=== PATIENT | female | born 1970 | race African-American/Black ===

== ENCOUNTER 2020-05-31 09:56 | Inpatient (IN) | payer OTHER ==
[~2020-05-31] VITALS: Ht 167.6 cm; Wt 88.7 kg
[2020-05-31] VITALS (22 sets, daily range): BP systolic 109–129; BP diastolic 60–88
[2020-05-31] MEDS ORDERED: NICARDIPINE 40MG/200ML PREMIX 200 ML IV STA (10:11)
[2020-05-31] MEDS ORDERED: LABETALOL 5MG/ML SYR 20 MG/4 ML SYRINGE IV ONE (10:15)
[2020-05-31] MEDS ORDERED: LEVETIRACETAM 500MG PREMIX 100 ML IV ONE (10:15)
[2020-05-31 10:16] LABS: BASOPHILS % 0.4 % (0.0-2.0); EOSINOPHILS % 0.3 % (0.0-5.0); HEMATOCRIT. 34.7 % (36.0-48.0); HEMOGLOBIN. 11.6 g/dL (12.0-16.0); LYMPHOCYTES % 22.4 % (20.0-50.0); MEAN CORPUSCULAR HEMOGLOBIN 26.2 pg (28.0-32.0); MEAN CORPUSCULAR VOLUME 78.3 fL (81.0-99.0); MEAN PLATELET VOLUME 7.9 fl (7.4-10.4); MONOCYTES % 4.2 % (2.0-8.0); NEUTROPHILS % 72.7 % (40.0-76.0); PLATELET 217 x1000/uL (130-400); RED BLOOD CELL COUNT 4.42 mill/uL (4.2-5.4)
[2020-05-31 10:22] LABS: CHLORIDE 100 mEq/L (98-107)
[2020-05-31 10:25] LABS: ETHANOL BLOOD < 10 mg/dL; INR 1.1; PROTHROMBIN TIME 11.3 sec (9.6-11.0)
[2020-05-31 10:29] LABS: LDL CHOLESTEROL 138 mg/dL (5-100)
[2020-05-31 10:30] LABS: CREATINE KINASE 415 IU/L (26-192)
[2020-05-31] MEDS ORDERED: DEXAMETHASONE 10 MG/ML VIAL IV ONE (10:30)
[2020-05-31] MEDS ORDERED: MANNITOL 12.5G (25%) VIAL 50ML IV ONE (10:30)
[2020-05-31] MEDS ORDERED: MANNITOL 20% 125 ML IV NR (10:30)
[2020-05-31 10:33] LABS: HCG SCREEN NEGATIVE
[2020-05-31] MEDS ORDERED: POTASSIUM CHLORIDE INJ 40 MEQ in DEXT 5% WATER 250 ML IV ONE (10:45)
[2020-05-31] MEDS ORDERED: MORPHINE SULFATE 2 MG/ML CPJ (NOT FOR IM USE) IV PRN (11:00)
[2020-05-31] MEDS ORDERED: NICARDIPINE 100 MG in SODIUM CHLORIDE 0.9% 60 ML IV PRN (11:00)
[2020-05-31 11:12] LABS: CLARITY URINE CLEAR (CLEAR); COLOR URINE YELLOW (YELLOW); KETONES URINE NEGATIVE (NEGATIVE); LEUKOCYTE ESTERASE URINE NEGATIVE (NEGATIVE); NITRITE URINE NEGATIVE (NEGATIVE); OCCULT BLOOD URINE NEGATIVE (NEGATIVE); PH URINE 7.5 (4.5-8.0); PROTEIN URINE 2+ (NEGATIVE); SPECIFIC GRAVITY URINE 1.017 (1.005-1.030); UROBILINOGEN URINE 0.2 E.U./dL (0.2-1.0)
[2020-05-31] MEDS: DEXT 5%/LACTATED RINGERS 1,000 ML IV SCH (11:25)
[2020-05-31 11:54] LABS: *AMPHETAMINES SCREEN URINE NEGATIVE (NEGATIVE); *BARBITURATES SCREEN URINE NEGATIVE (NEGATIVE); *BENZODIAZEPINES SCREEN URINE NEGATIVE (NEGATIVE)
[2020-05-31 11:55] LABS: OPIATES URINE SCREEN NEGATIVE (NEGATIVE)
[2020-05-31 11:56] LABS: CANNABINOID URINE SCREEN NEGATIVE (NEGATIVE)
[2020-05-31 11:57] LABS: PHENCYCLIDINE URINE SCREEN NEGATIVE (NEGATIVE)
[2020-05-31 12:00] LABS: METHADONE URINE SCREEN NEGATIVE (NEGATIVE)
[2020-05-31 12:01] LABS: *COCAINE SCREEN URINE NEGATIVE (NEGATIVE)
[2020-05-31] MEDS: DEXAMETHASONE 4MG/ML 1ML VIAL IV SCH ×2 (12:25→17:32)
[2020-05-31] MEDS ORDERED: IOHEXOL-300 100 ML BOTTLE ONE (12:51)
[2020-05-31] MEDS ORDERED: ONDANSETRON HCL 4MG/2ML INJ IV PRN (13:00)
[2020-05-31] MEDS ORDERED: DIPHENHYDRAMINE 50MG/ML VIAL IV PRN (13:00)
[2020-05-31] MEDS: NICARDIPINE 100 MG in SODIUM CHLORIDE 0.9% 60 ML IV PRN ×2 (14:36→17:29)
[2020-05-31 16:53] LABS: BG BASE EXCESS 5.9 mmol/L (-2.0-2.0); BG CARBOXYHEMOGLOBIN 0.4 % (0.5-1.5); BG DEOXYHEMOGLOBIN 2.8 % (0.0-5.0); BG FRACTION INSPIRED OXYGEN 21; BG HCO3 ACT 29.4 mmol/L (22.0-26.0); BG METHEMOGLOBIN 0.3 % (0.0-1.5); BG OXYGEN SATURATION 97.2 % (92.0-98.5); BG OXYHEMOGLOBIN 96.5 % (94.0-97.0); BG PCO2 38.7 mmHg (35.0-45.0); BG PH 7.499 (7.350-7.450); BG SAMPLE SITE RIGHT RADIAL; BG VENT MODE ROOM AIR
[2020-05-31] MEDS: POTASSIUM CHLORIDE INJ 40 MEQ in DEXT 5% WATER 250 ML IV NR (18:22)
[2020-05-31] MEDS ORDERED: LEVETIRACETAM 500MG PREMIX 100 ML IV SCH (21:00)
[2020-05-31] MEDS: LEVETIRACETAM 500MG PREMIX 100 ML IV SCH (21:39)
[2020-06-01] VITALS (91 sets, daily range): BP systolic 100–136; BP diastolic 61–89
[2020-06-01] MEDS: DEXAMETHASONE 4MG/ML 1ML VIAL IV SCH ×5 (00:20→23:25)
[2020-06-01] MEDS: NICARDIPINE 100 MG in SODIUM CHLORIDE 0.9% 60 ML IV PRN ×2 (01:39→19:53)
[2020-06-01] MEDS ORDERED: POTASSIUM CHLORIDE INJ 40 MEQ in DEXT 5% WATER 250 ML IV NR (03:00)
[2020-06-01] MEDS: POTASSIUM CHLORIDE INJ 40 MEQ in DEXT 5% WATER 250 ML IV NR ×2 (04:00→04:06)
[2020-06-01] MEDS: DEXT 5%/LACTATED RINGERS 1,000 ML IV SCH ×2 (04:01→20:29)
[2020-06-01 05:42] LABS: BASOPHILS % 0.2 % (0.0-2.0); HEMATOCRIT. 33.8 % (36.0-48.0); HEMOGLOBIN. 11.1 g/dL (12.0-16.0); LYMPHOCYTES % 15.3 % (20.0-50.0); MEAN CORPUSCULAR HEMOGLOBIN 25.5 pg (28.0-32.0); MEAN CORPUSCULAR VOLUME 77.7 fL (81.0-99.0); MONOCYTES % 0.8 % (2.0-8.0); NEUTROPHILS % 83.7 % (40.0-76.0); PLATELET 205 x1000/uL (130-400); RED BLOOD CELL COUNT 4.36 mill/uL (4.2-5.4); RED CELL DISTRIBUTION WIDTH 16.3 % (11.6-14.6)
[2020-06-01 05:47] LABS: CHLORIDE 104 mEq/L (98-107)
[2020-06-01 05:56] LABS: LDL CHOLESTEROL 134 mg/dL (5-100); PHOSPHORUS 1.7 mg/dL (2.5-4.9)
[2020-06-01 05:58] LABS: HDL CHOLESTEROL 64 mg/dL (40-59)
[2020-06-01] MEDS: LEVETIRACETAM 500MG PREMIX 100 ML IV SCH ×2 (09:17→20:07)
[2020-06-01] MEDS ORDERED: POTASSIUM CHLORIDE INJ 60 MEQ in DEXT 5% WATER 500 ML IV SCH (11:00)
[2020-06-02] VITALS (100 sets, daily range): BP systolic 106–147; BP diastolic 61–104
[2020-06-02] MEDS: DEXAMETHASONE 4MG/ML 1ML VIAL IV SCH ×2 (05:02→12:34)
[2020-06-02 06:06] LABS: HEMATOCRIT 33.9 % (36.0-48.0); MEAN CORPUSCULAR HEMOGLOBIN 25.5 pg (28.0-32.0); MEAN CORPUSCULAR VOLUME 78.2 fL (81.0-99.0); PLATELET 226 x1000/uL (130-400); RED BLOOD CELL COUNT 4.33 mill/uL (4.2-5.4); RED CELL DISTRIBUTION WIDTH 16.6 % (11.6-14.6)
[2020-06-02 06:51] LABS: PHOSPHORUS 3.7 mg/dL (2.5-4.9)
[2020-06-02] MEDS: NICARDIPINE 100 MG in SODIUM CHLORIDE 0.9% 60 ML IV PRN (07:52)
[2020-06-02] MEDS: LEVETIRACETAM 500MG PREMIX 100 ML IV SCH ×2 (09:21→20:13)
[2020-06-02] MEDS ORDERED: POTASSIUM CHLORIDE INJ 60 MEQ in DEXT 5% WATER 500 ML IV SCH (10:00)
[2020-06-02 10:02] LABS: T4 FREE 0.98 ng/dL (0.76-1.46)
[2020-06-02] MEDS: DEXT 5%/LACTATED RINGERS 1,000 ML IV SCH ×2 (13:00→17:39)
[2020-06-02] MEDS: AMLODIPINE 5MG TABLET PO SCH (13:28)
[2020-06-02 20:09] LABS: CHLORIDE 107 mEq/L (98-107)
[2020-06-02] MEDS ORDERED: POTASSIUM CHLORIDE INJ 40 MEQ in DEXT 5% WATER 500 ML IV NR (22:30)
[2020-06-03] VITALS (59 sets, daily range): BP systolic 108–152; BP diastolic 45–98
[2020-06-03 05:55] LABS: HEMATOCRIT. 32.9 % (36.0-48.0); HEMOGLOBIN. 10.9 g/dL (12.0-16.0); MEAN CORPUSCULAR HEMOGLOBIN 25.9 pg (28.0-32.0); MEAN PLATELET VOLUME 8.1 fl (7.4-10.4); PLATELET 221 x1000/uL (130-400); RED BLOOD CELL COUNT 4.21 mill/uL (4.2-5.4); RED CELL DISTRIBUTION WIDTH 16.6 % (11.6-14.6)
[2020-06-03 07:06] LABS: *CREATININE RANDOM URINE 102.2 mg/dL (Not Estab.); MICROALBUMIN RANDOM URINE 80.7 ug/mL (Not Estab.)
[2020-06-03] MEDS: LEVETIRACETAM 500MG PREMIX 100 ML IV SCH ×2 (08:39→20:14)
[2020-06-03] MEDS: AMLODIPINE 5MG TABLET PO SCH (08:40)
[2020-06-03] MEDS ORDERED: POTASSIUM CHLORIDE INJ 40 MEQ in DEXT 5% WATER 500 ML IV NR ×2 (09:00→14:00)
[2020-06-03] MEDS: AMLODIPINE 10MG TABLET PO SCH (09:00)
[2020-06-03] MEDS ORDERED: AMLODIPINE 5MG TABLET PO SCH (09:00)
[2020-06-03 10:43] LABS: PLATELET ESTIMATE NORMAL
[2020-06-03] MEDS: HYDRALAZINE HCL 25MG TABLET PO SCH ×2 (13:54→20:56)
[2020-06-03] MEDS: CLONIDINE 0.1MG TABLET PO PRN ×2 (18:53→23:59)
[2020-06-03 20:29] LABS: CHLORIDE 109 mEq/L (98-107)
[2020-06-03] MEDS ORDERED: POTASSIUM CHLORIDE 20MEQ TABLET SR PO NR (21:00)
[2020-06-04] VITALS (12 sets, daily range): BP systolic 136–159; BP diastolic 54–108
[2020-06-04] MEDS: HYDRALAZINE HCL 25MG TABLET PO SCH (06:01)
[2020-06-04 06:26] LABS: BASOPHILS % 0.2 % (0.0-2.0); HEMATOCRIT. 33.1 % (36.0-48.0); HEMOGLOBIN. 10.8 g/dL (12.0-16.0); LYMPHOCYTES % 14.3 % (20.0-50.0); MEAN CORPUSCULAR HEMOGLOBIN 25.5 pg (28.0-32.0); MEAN CORPUSCULAR VOLUME 78.3 fL (81.0-99.0); MEAN PLATELET VOLUME 7.6 fl (7.4-10.4); MONOCYTES % 3.9 % (2.0-8.0); NEUTROPHILS % 81.6 % (40.0-76.0); PLATELET 214 x1000/uL (130-400); RED BLOOD CELL COUNT 4.22 mill/uL (4.2-5.4); RED CELL DISTRIBUTION WIDTH 16.7 % (11.6-14.6)
[2020-06-04 06:36] LABS: PHOSPHORUS 3.7 mg/dL (2.5-4.9)
[2020-06-04] MEDS: LEVETIRACETAM 500MG PREMIX 100 ML IV SCH ×2 (08:54→20:43)
[2020-06-04] MEDS: AMLODIPINE 10MG TABLET PO SCH (08:55)
[2020-06-04] MEDS: NIFEDIPINE XL 30MG TAB PO SCH (10:15)
[2020-06-04] MEDS ORDERED: HYDRALAZINE HCL 25MG TABLET PO SCH (14:00)
[2020-06-04] MEDS: DEXT 5%/LACTATED RINGERS 1,000 ML IV SCH ×3 (14:50→14:54)
[2020-06-04] MEDS: CLONIDINE 0.1MG TABLET PO PRN (16:45)
[2020-06-04] MEDS: HYDRALAZINE HCL 50MG TABLET PO SCH (20:44)
[2020-06-05] VITALS (11 sets, daily range): BP systolic 132–152; BP diastolic 87–101
[2020-06-05] MEDS: HYDRALAZINE HCL 50MG TABLET PO SCH (05:39)
[2020-06-05 06:32] LABS: BASOPHILS % 0.1 % (0.0-2.0); EOSINOPHILS % 0.3 % (0.0-5.0); HEMATOCRIT. 31.4 % (36.0-48.0); HEMOGLOBIN. 10.5 g/dL (12.0-16.0); MEAN CORPUSCULAR VOLUME 77.5 fL (81.0-99.0); MEAN PLATELET VOLUME 8.1 fl (7.4-10.4); MONOCYTES % 6.8 % (2.0-8.0); NEUTROPHILS % 60.8 % (40.0-76.0); PLATELET 227 x1000/uL (130-400); RED BLOOD CELL COUNT 4.05 mill/uL (4.2-5.4)
[2020-06-05] MEDS: DEXT 5%/LACTATED RINGERS 1,000 ML IV SCH (07:40)
[2020-06-05] MEDS: NIFEDIPINE XL 30MG TAB PO SCH (09:52)
[2020-06-05] MEDS: LEVETIRACETAM 500MG PREMIX 100 ML IV SCH ×2 (09:54→21:27)
[2020-06-05] MEDS ORDERED: POTASSIUM CHLORIDE 20MEQ TABLET SR PO NR ×2 (10:30→19:00)
[2020-06-05] MEDS: HYDRALAZINE HCL 25MG TABLET PO SCH ×2 (14:15→21:28)
[2020-06-05] MEDS: CLONIDINE 0.1MG TABLET PO PRN (15:38)
[2020-06-05] MEDS ORDERED: POTASSIUM CHLORIDE INJ 60 MEQ in DEXT 5% WATER 500 ML IV NR (21:00)
[2020-06-06] VITALS (12 sets, daily range): BP systolic 141–162; BP diastolic 68–110
[2020-06-06] MEDS: DEXT 5%/LACTATED RINGERS 1,000 ML IV SCH ×2 (04:37→11:00)
[2020-06-06] MEDS: HYDRALAZINE HCL 25MG TABLET PO SCH ×3 (06:38→21:05)
[2020-06-06] MEDS ORDERED: SPIRONOLACTONE 25MG TABLET PO SCH (09:00)
[2020-06-06 09:18] LABS: BASOPHILS % 0.4 % (0.0-2.0); EOSINOPHILS % 1.3 % (0.0-5.0); HEMATOCRIT. 34.5 % (36.0-48.0); HEMOGLOBIN. 11.5 g/dL (12.0-16.0); LYMPHOCYTES % 31.1 % (20.0-50.0); MEAN CORPUSCULAR HEMOGLOBIN 25.9 pg (28.0-32.0); MEAN CORPUSCULAR VOLUME 77.8 fL (81.0-99.0); MEAN PLATELET VOLUME 8.1 fl (7.4-10.4); MONOCYTES % 7.3 % (2.0-8.0); NEUTROPHILS % 59.9 % (40.0-76.0); PLATELET 223 x1000/uL (130-400); RED BLOOD CELL COUNT 4.43 mill/uL (4.2-5.4); RED CELL DISTRIBUTION WIDTH 16.5 % (11.6-14.6)
[2020-06-06 09:27] LABS: PHOSPHORUS 2.4 mg/dL (2.5-4.9)
[2020-06-06] MEDS: LEVETIRACETAM 500MG PREMIX 100 ML IV SCH ×2 (09:47→20:08)
[2020-06-06] MEDS: NIFEDIPINE XL 30MG TAB PO SCH (09:48)
[2020-06-06] MEDS ORDERED: POTASSIUM CHLORIDE INJ 40 MEQ in DEXT 5% WATER 250 ML IV SCH (14:00)
[2020-06-06 16:49] LABS: HEMATOCRIT. 35.2 % (36.0-48.0); HEMOGLOBIN. 11.7 g/dL (12.0-16.0); MEAN CORPUSCULAR HEMOGLOBIN 25.8 pg (28.0-32.0); MEAN CORPUSCULAR VOLUME 77.9 fL (81.0-99.0); RED BLOOD CELL COUNT 4.52 mill/uL (4.2-5.4)
[2020-06-06 16:50] LABS: EOSINOPHILS % 1.5 % (0.0-5.0); LYMPHOCYTES % 27.1 % (20.0-50.0); MEAN PLATELET VOLUME 7.9 fl (7.4-10.4); MONOCYTES % 5.5 % (2.0-8.0); NEUTROPHILS % 64.9 % (40.0-76.0); PLATELET 211 x1000/uL (130-400); RED CELL DISTRIBUTION WIDTH 16.2 % (11.6-14.6)
[2020-06-06] MEDS: CLONIDINE 0.1MG TABLET PO PRN (20:08)
[2020-06-12 09:06] LABS: DOPAMINE PLASMA <30 pg/mL (0-48); EPINEPHRINE PLASMA 137 pg/mL (0-62); NOREPINEPHRINE PLASMA 259 pg/mL (0-874)
== END 2020-06-06 23:22 | disposition short-term general hospital (02) | DRG 65 ==
LOC: ER 10:21 → EDBEDREQ 10:26 → EDBEDREQSVC 10:26 → MICUSO 10:39 → EDBEDREQ 10:43 → ENRESERV 12:36 → 5EST 06-04 02:40
PROVIDERS: ADMIT Internal Medicine; ATTEND Internal Medicine
DX: I61.5 Nontraumatic intracerebral hemorrhage, intraventricular (principal); I16.1 Hypertensive emergency; N17.9 Acute kidney failure, unspecified; I42.2 Other hypertrophic cardiomyopathy; G81.91 Hemiplegia, unspecified affecting right dominant side; N18.9 Chronic kidney disease, unspecified; D64.9 Anemia, unspecified; E87.6 Hypokalemia; E05.90 Thyrotoxicosis, unspecified without thyrotoxic crisis or storm; D25.9 Leiomyoma of uterus, unspecified; G31.9 Degenerative disease of nervous system, unspecified; E27.8 Other specified disorders of adrenal gland; R73.9 Hyperglycemia, unspecified; D35.02 Benign neoplasm of left adrenal gland; E78.00 Pure hypercholesterolemia, unspecified; I12.9 Hypertensive chronic kidney disease with stage 1 through stage 4 chronic kidney disease, or unspecified chronic kidney disease; J32.0 Chronic maxillary sinusitis; N28.1 Cyst of kidney, acquired; Z80.0 Family history of malignant neoplasm of digestive organs; Z20.822 Contact with and (suspected) exposure to COVID-19
CPT/HCPCS: 36415; 36600; 70496; 70498; 70551; 71045; 76770; 80048; 80053; 80061; 80305; 80320; 81003; 82024; 82043; 82088; 82375; 82533; 82550; 82570; 82805; 82962; 83036; 83721; 83735; 83835; 83880; 84100; 84132; 84133; 84156; 84244; 84300; 84439; 84443; 84481; 84484; 84703; 85025; 85027; 87426; 93005; 93306; 93970; 97112; 97116; 97162; 97166; 97530; 99291; A6261; J1100; J1953; J2150; J3480; J3490; J7050; J7060; Q9967; A4315; G0480